=== PATIENT | female | born 1975 | race Two or more races ===

== ENCOUNTER 2025-09-12 17:46 | Emergency (ER) | payer BC, OTHER ==
[~2025-09-12] VITALS: Ht 175.3 cm; Wt 111.9 kg
[2025-09-12] MEDS ORDERED: CLON0.1T PO (18:35)
--- NOTE | 2025-09-12 18:35 | ED.PDOC ---
HPI (NEURO) HPI Comments 50-year-old female presents to the ED chief complaint headaches x2 weeks. Reports intermittent headaches x2 weeks starts in the back of her neck radiates up the back of the head in the top of the head sometimes frontal headache. She also notes over the past two months she has been having high blood pressure readings states bought a blood pressure cuff and has been monitoring it at home. Has been labile with blood pressures ranging from 130 over 80 to 188/110. Patient notes when the headaches come on she checks her blood pressure and she is usually with high readings. Follow up with her PCP regarding her new symptoms. She reports no chest pain, difficulty breathing, shortness of breath, weakness, numbness or known injury. Chief Complaint: Headache Time Seen by MD: 18:01 Reviewed Notes: Nurses Notes, Medications, Allergies Information Source: Patient Mode of Arrival: Ambulatory Past Medical History PAST MEDICAL HISTORY: Denies Surgical History: Denies all surgeries GAMING FLOOR SUPERVISOR History: No Pertinent GAMING FLOOR SUPERVISOR History Family History Family History: Unknown Social History Smoker: Non-Smoker Alcohol: Denies ETOH Use Drugs: Denies Drug Use All Other Systems: Reviewed and Negative (see hpi) Physical Exam General Appearance: No Apparent Distress, Normal HEENT: Normal ENT Inspection, Pharynx Normal, TMs Normal Neck: Limited Range of Motion, Tender Lateral, Other (Moderate tenderness and stiffness over bilateral trapz) Respiratory: Chest Non-Tender, Lungs Clear, No Accessory Muscle Use, No Respiratory Distress, Normal Breath Sounds Cardiovascular: No Edema, No JVD, No Murmur, No Gallop, Normal Peripheral Pulses, Regular Rate/Rhythm Breast Exam: Deferred Gastrointestinal: No Organomegaly, Non Tender, No Pulsatile Mass, Normal Bowel Sounds, Soft Genitalia: Deferred Pelvic: Deferred Rectal: Deferred Extremities: Normal capillary refill, Normal range of motion, No pedal edema Musculoskeletal : Apperance: Normal Neurologic: Alert, No Motor Deficits, Normal Affect, Normal Mood, No Sensory Deficits Cerebellar Function: Normal Reflexes: NOT DONE Skin: Dry, Normal Color, Warm Lymphatic: No Adenopathy Was a procedure done? Was a procedure done?: No Differential Diagnosis (SZ) Headache: Cluster, Migraine, Epidural Hemorrhage, Intracerebral Hemorrhage, Subarachnoid Hemorrhage, Subdural Hemorrhage X-Ray, Labs, Meds, VS Vital Signs Date Time Temp Pulse Resp B/P (MAP) Pulse Ox O2 Delivery O2 Flow Rate FiO2 09/12/25 19:07 88 18 98 Room Air 09/12/25 19:07 98.2 88 18 155/108 (124) 95 98.2 09/12/25 18:40 141/94 09/12/25 17:49 98.1 87 18 143/92 96 98.1 Current Medications Medications (Trade) Dose Ordered Sig/Felicitas Route Start Time Stop Time Status Last Admin Ketorolac Tromethamine (Toradol Injection) 60 mg ONCE ONCE IM 09/12/25 18:30 09/12/25 18:31 DC 09/12/25 18:54 Dexamethasone Sodium Phosphate (Decadron Injection) 10 mg ONCE ONCE IM 09/12/25 18:30 09/12/25 18:31 DC 09/12/25 18:48 Clonidine HCl (Catapres Tablet) 0.1 mg ONCE ONCE PO 09/12/25 18:30 09/12/25 18:31 DC 09/12/25 18:40 X-Ray, Labs, Meds, VS Comment PATIENT REPORTS IMPROVEMENT IN PAIN REQUESTING DISCHARGE AT THIS TIME. SCRIPT TRIAL OF CLONIDINE TWICE DAILY ADVISED TO FOLLOW UP WITH THE PCP WITH A BLOOD PRESSURE JOURNAL MONITOR BLOOD PRESSURE DAILY. ER RETURN PRECAUTIONS GIVEN PATIENT INDICATES UNDERSTANDING AGREES WITH DISCHARGE PLAN OF CARE. Time of 1ST Reevaluation: 18:01 Reevaluation 1ST: Unchanged Time of 2ND Reevaluation: 19:27 Reevaluation 2ND: Improved Patient Education/Counseling: Diagnosis, Treatment, Need For Follow Up Family Education/Counseling: Diagnosis, Treatment Departure 1 Departure Time of Disposition: 19:27 Impression: Primary Impression: Elevated blood pressure reading without diagnosis of hypertension Additional Impression: Headache, cervicogenic Disposition: 01 HOME / SELF CARE / HOMELESS Condition: Stable e-Prescriptions Clonidine Hydrochloride (Clonidine Hcl) 0.1 Mg Tab 0.1 MG PO BID for 15 Days, #30 TAB Prov: SHELLI SHOEMAKER 09/12/25 Discharged With: Spouse Critical Care Note Critical Care Time?: No Stability Stability form required: No SHELLI SHOEMAKER Sep 12, 2025 18:35
[2025-09-12] MEDS: KETOROLAC TROMETH 60MG/2ML VIAL IM ONE ×2 (18:49→18:54)
[2025-09-12 19:07] VITALS: TEMP 98.2
[2025-09-12 19:40] VITALS: BP 151/97; PULSE 73; RESP 17; O2SAT 100
== END 2025-09-12 19:48 | disposition home or self-care (01) ==
LOC: ER 17:46
DX: R03.0 Elevated blood-pressure reading, without diagnosis of hypertension (principal); R51.9 Headache, unspecified
CPT/HCPCS: 96372; 99284; J1100; J1885